=== PATIENT | male | born 1995 | race Caucasian/White ===

== ENCOUNTER 2021-12-09 15:24 | Emergency (ER) | payer OTHER ==
[2021-12-09] MEDS ORDERED: MORPHINE 4 MG/1 ML INJ IV ONE (18:23)
[2021-12-09] MEDS ORDERED: ONDANSETRON 4 MG/2 ML INJ IV ONE ×2 (18:23→22:06)
[2021-12-09] MEDS ORDERED: SODIUM CHLORIDE 0.9% 1000 ML 1,000 ML IV ONE (18:23)
--- NOTE | 2021-12-09 19:17 | Emergency Department Report ---
<JIMENA NATARAJAN - Last Filed: 12/09/21 21:05> ED Abdominal Pain HPI - General Chief Complaint: Abdominal Pain Stated Complaint: ABD PAIN/VOMITING Time Seen by Provider: 12/09/21 18:21 Source: patient Mode of arrival: Ambulatory Limitations: No Limitations - History of Present Illness Initial Comments: Patient is a 26-year-old male presents emergency room complaints of nausea and vomiting and that began at 3 AM this morning. He states he is also been having right lower quadrant abdominal pain. Patient states he has had sick contacts who also had similar symptoms but he reports that their symptoms resolved within 12 hours and he feels like he is getting worse. He denies any fever, hematochezia, melena, hematemesis, urinary symptoms, pain or swelling in the testicles. He denies any past abdominal surgical history. Allergy to droperidol, haloperidol, ketamine Severity scale (0 -10): 10 - Related Data Allergies Allergy/AdvReac Type Severity Reaction Status Date / Time droperidol Allergy Severe Unknown Verified 12/10/21 01:01 haloperidol [From Haldol] Allergy Severe Unknown Verified 12/10/21 01:01 ketamine Allergy Severe Seizure Verified 12/10/21 01:01 ED Review of Systems Comment: All other systems reviewed and negative ED Physical Exam - General Limitations: No Limitations General appearance: alert, in no apparent distress - Head Head exam: Present: atraumatic, normocephalic - Eye Eye exam: Present: normal appearance - ENT ENT exam: Present: mucous membranes moist - Respiratory Respiratory exam: Present: normal lung sounds bilaterally. Absent: respiratory distress, wheezes, rales, rhonchi, stridor, chest wall tenderness, accessory muscle use, decreased breath sounds, prolonged expiratory - Cardiovascular Cardiovascular Exam: Present: normal rhythm, tachycardia, normal heart sounds. Absent: systolic murmur, diastolic murmur, rubs, gallop - GI/Abdominal GI/Abdominal exam: Present: soft, tenderness (RLQ), guarding (voluntary), normal bowel sounds. Absent: distended, rebound, rigid - Neurological Exam Neurological exam: Present: alert, oriented X3 - Psychiatric Psychiatric exam: Present: normal affect, normal mood - Skin Skin exam: Present: warm, dry, intact ED Medical Decision Making - Lab Data Result diagrams: 12/09/21 18:59 12/09/21 18:59 Lab Results 12/09/21 12/09/21 Range/Units 18:59 18:59 WBC 10.3 (4.5-11.0) K/mm3 RBC 4.86 (3.65-5.03) M/mm3 Hgb 14.0 (11.8-15.2) gm/dl Hct 41.9 (35.5-45.6) % MCV 86 (84-94) fl MCH 29 (28-32) pg MCHC 33 (32-34) % RDW 13.3 (13.2-15.2) % Plt Count 255 (140-440) K/mm3 Add Manual Diff Complete Total Counted 100 Seg Neutrophils % [employer] Seg Neuts % (Manual) 91.0 H (40.0-70.0) % Band Neutrophils % 0 % Lymphocytes % (Manual) 5.0 L (13.4-35.0) % Reactive Lymphs % (Man) 0 % Monocytes % (Manual) 4.0 (0.0-7.3) % Eosinophils % (Manual) 0 (0.0-4.3) % Basophils % (Manual) 0 (0.0-1.8) % Metamyelocytes % 0 % Myelocytes % 0 % Promyelocytes % 0 % Blast Cells % 0 % Nucleated RBC % Not Reportable Seg Neutrophils # Man 9.4 H (1.8-7.7) K/mm3 Band Neutrophils # 0.0 K/mm3 Lymphocytes # (Manual) 0.5 L (1.2-5.4) K/mm3 Abs React Lymphs (Man) 0.0 K/mm3 Monocytes # (Manual) 0.4 (0.0-0.8) K/mm3 Eosinophils # (Manual) 0.0 (0.0-0.4) K/mm3 Basophils # (Manual) 0.0 (0.0-0.1) K/mm3 Metamyelocytes # 0.0 K/mm3 Myelocytes # 0.0 K/mm3 Promyelocytes # 0.0 K/mm3 Blast Cells # 0.0 K/mm3 WBC Morphology Not Reportable Hypersegmented Neuts Not Reportable Hyposegmented Neuts Not Reportable Hypogranular Neuts Not Reportable Smudge Cells Not Reportable Toxic Granulation Not Reportable Toxic Vacuolation Not Reportable Dohle Bodies Not Reportable Pelger-Huet Anomaly Not Reportable Montrell Rods Not Reportable Platelet Estimate Not Reportable Clumped Platelets Not Reportable Plt Clumps, EDTA Not Reportable Large Platelets Not Reportable Giant Platelets Not Reportable Platelet Satelliting Not Reportable Plt Morphology Comment Not Reportable RBC Morphology Normal Dimorphic RBCs Not Reportable Polychromasia Not Reportable Hypochromasia Not Reportable Poikilocytosis Not Reportable Anisocytosis Not Reportable Microcytosis Not Reportable Macrocytosis Not Reportable Spherocytes Not Reportable Pappenheimer Bodies Not Reportable Sickle Cells Not Reportable Target Cells Not Reportable Tear Drop Cells Not Reportable Ovalocytes Not Reportable Helmet Cells Not Reportable [place] Bodies Not Reportable [place] Rings Not Reportable [place] Cells Not Reportable Bite Cells Not Reportable Crenated Cell Not Reportable Elliptocytes Not Reportable Acanthocytes (Spur) Not Reportable Rouleaux Not Reportable Hemoglobin C Crystals Not Reportable Schistocytes Not Reportable Malaria parasites Not Reportable Juliano Bodies Not Reportable Hem Pathologist Commnt No Sodium 139 (137-145) mmol/L Potassium 4.2 (3.6-5.0) mmol/L Chloride 97.1 L (98-107) mmol/L Carbon Dioxide 27 (22-30) mmol/L Anion Gap 19 mmol/L BUN 10 (9-20) mg/dL Creatinine 0.8 (0.8-1.3) mg/dL Estimated GFR > 60 ml/min BUN/Creatinine Ratio 13 % Glucose 129 H (75-100) mg/dL Calcium 10.7 H (8.4-10.2) mg/dL Total Bilirubin 0.40 (0.1-1.2) mg/dL AST 18 (5-40) units/L ALT 19 (7-56) units/L Alkaline Phosphatase 58 (35-129) units/L Total Protein 8.1 (6.3-8.2) g/dL Albumin 5.4 H (3.9-5) g/dL Albumin/Globulin Ratio 2.0 % Lipase 31 (13-60) units/L - Medical Decision Making Patient is a 26-year-old male presents emergency room complaints of nausea and vomiting and that began at 3 AM this morning. He states he is also been having right lower quadrant abdominal pain. Patient states he has had sick contacts who also had similar symptoms but he reports that their symptoms resolved within 12 hours and he feels like he is getting worse. He denies any fever, hematochezia, melena, hematemesis, urinary symptoms, pain or swelling in the testicles. He denies any past abdominal surgical history. Allergy to droperidol, haloperidol, ketamine. vitals with tachycardia otherwise stable. Right lower quadrant tenderness on exam, no guarding, no rebound, no rigidity, no peritoneal signs. labs are stable. no leukocytosis. CT abd pelvis with IV contrast is pending pt signed out to Too Manzanares PA-C pending CT abd pelvis and disposition ED Disposition Clinical Impression: Perforation of esophagus, Gastroenteritis, Pneumomediastinum Abdominal pain Qualifiers: Abdominal location: epigastric Qualified Code(s): R10.13 - Epigastric pain Pneumothorax Qualifiers: Pneumothorax type: unspecified pneumothorax Qualified Code(s): J93.9 - Pneumothorax, unspecified Nausea & vomiting Qualifiers: Vomiting type: unspecified Qualified Code(s): R11.2 - Nausea with vomiting, unspecified Disposition: ADMITTED INPATIENT Condition: Critical <HA MACIAS III - Last Filed: 12/10/21 02:47> ED Abdominal Pain HPI - General PUI?: No ED Review of Systems ROS: Stated complaint: ABD PAIN/VOMITING Other details as noted in HPI ED Course Vital Signs 12/09/21 12/10/21 18:12 01:55 Temperature 99 F Pulse Rate 115 H Respiratory 16 20 Rate Blood Pressure 142/103 [Right] O2 Sat by Pulse 100 Oximetry - Reevaluation(s) Reevaluation #1: I assumed care of the patient. The radiologist called with a critical finding on the CT scan of a bibasilar pneumothorax and pneumomediastinum. I reviewed the findings and management of this patient in real-time and I have personally seen and examined this patient and participated in the decision making for this patient with the midlevel. Patient is a 26-year-old male who presents emergency room with complaints of epigastric pain and nausea and vomiting x12 hours. I assumed care of the patient. I examined the patient. Patient has epigastric tenderness. Patient heart sounds are normal, normal S1-S2. Lung sounds are clear to auscultation. Patient is not short of breath. Patient is complaining of nausea and vomiting and abdominal pain. Patient will be given Dilaudid and Zofran. Patient will given IV fluids. 12/09/21 21:25 Reevaluation #2: I discussed all results with patient. I discussed plan of care with patient. Patient agrees with plan of care and admission. Patient to be admitted to the h ospitalist service. 12/10/21 02:15 - Consultations Consultation #1: I discussed the case with pulmonary critical care, Dr. Pereyra. No further recommendations were received. 12/09/21 23:39 Consultation #2: I discussed the case with GI. Recommendations were received. Dr. Sanchez will follow the patient 12/09/21 23:58 Consultation #3: I discussed the case with surgery, Dr. Zamarripa. Dr. Zamarripa wants the patient to be transferred to another facility that has the necessary surgical support. 12/10/21 01:[address] Lau at [facility]. Dr. Lau recommends admission here and he will follow the patient and once a [facility] bed opens up, and we will initiate the transfer. Dr Lau does not recommend any surgical procedures but recommends observation. 12/10/21 01:47 Hospitalist consulted for admission. Hospitalist to admit patient. 12/10/21 01:52 ED Medical Decision Making - Lab Data Result diagrams: 12/09/21 18:59 12/09/21 18:59 - Radiology Data Radiology results: report reviewed CT ABDOMEN AND PELVIS WITH CONTRAST INDICATION / CLINICAL INFORMATION: Right lower quadrant pain, nausea vomiting and diarrhea. TECHNIQUE: Axial CT images were obtained through the abdomen and pelvis after 100 cc Omnipaque [address] scans at this location are performed using CT dose reduction for ALARA by means of automated exposure control. COMPARISON: None available. FINDINGS: LOWER CHEST: Pneumomediastinum is partially visualized surrounding the esophagus with a tiny right basilar pneumothorax. No other acute findings. LIVER: No significant abnormality. GALLBLADDER: No significant abnormality. BILE DUCTS: No significant abnormality. PANCREAS: No significant abnormality. SPLEEN: No significant abnormality. ADRENALS: No significant abnormality. RIGHT KIDNEY/URETER: No significant abnormality. LEFT KIDNEY/URETER: No significant abnormality. STOMACH/SMALL BOWEL: No significant abnormality. COLON: There is mild thickening of the distal half of the descending colon and the proximal third of the sigmoid colon without other significant abnormalities. APPENDIX: No significant abnormality. PERITONEUM: No free fluid. No free air. No fluid collection. LYMPH NODES: No significant adenopathy. VASCULATURE: No significant abnormality. URINARY BLADDER: No significant abnormality. REPRODUCTIVE ORGANS: No significant abnormality. ADDITIONAL FINDINGS: None. BONES: No significant abnormality IMPRESSION: 1. Partially visualized pneumomediastinum with a tiny right basilar pneumothorax. 2. Mild acute descending and sigmoid colitis. 3. No acute findings in the right lower quadrant to explain the patient's pain. - Medical Decision Making I assumed care of the patient from the midlevel and the patient had a pending CT scan of the abdomen. CT scan of the abdomen resulted as a pneumothorax and pneumomediastinum. I did a dedicated CT scan of the chest. The CT scan of the chest showed a tiny pneumothorax and pneumomediastinum. Pneumonia status mostly secondary to a microperforation of the esophagus. I consulted pulmonology and GI. Recommendations were received. I then discussed the case with surgery and surgery recommended that I try to transfer the patient. I discussed the case with [place], [facility] and multiple other hospitals throughout the [facility] all of those hospital systems are all on diversion due to bed shortage. [facility], and he recommends admission here until a bed opens up at [facility]. Uma states they will place the patient on the bed waiting list and give us a call once a bed opens up. I then consulted again the hospitalist service and the hospitalist service will admit the patient. Critical care time documented due to the multiple reassessments, prolonged time at the bedside, interpretation of diagnostics and labs and discussion with multi ple other facilities. - Differential Diagnosis Abdominal pain, nausea, vomiting, gastroenteritis Critical Care Time: Yes Critical care time in (mins) excluding proc time.: 80 Critical care attestation.: If time is entered above; I have spent that time in minutes in the direct care of this critically ill patient, excluding procedure time. Critical Care Time: 80 minutes ED Disposition Is pt being admited?: Yes Does the pt Need Aspirin: No Time of Disposition: 01:52
[2021-12-09 19:21] LABS: Hematocrit 41.9 % (35.5-45.6); Mean Corpuscular HGB Conc 33 % (32-34); Mean Corpuscular Volume 86 fl (84-94); Platelet Count 255 K/mm3 (140-440); Red Blood Count 4.86 M/mm3 (3.65-5.03); Red Cell Distribution Width 13.3 % (13.2-15.2)
[2021-12-09 19:46] LABS: Alanine Aminotransferase 19 units/L (7-56); Albumin 5.4 g/dL (3.9-5); BUN/Creatinine Ratio 13; Blood Urea Nitrogen 10 mg/dL (9-20); Calcium 10.7 mg/dL (8.4-10.2); Hemolysis Index 17
[2021-12-09 20:29] LABS: Basophils % (Manual) 0 % (0.0-1.8); Eosinophils % (Manual) 0 % (0.0-4.3); RBC Morphology Normal; Total Cells Counted 100
--- NOTE | 2021-12-09 21:28 | Cat Scan Report ---
CT ABDOMEN AND PELVIS WITH CONTRAST INDICATION / CLINICAL INFORMATION: Right lower quadrant pain, nausea vomiting and diarrhea. TECHNIQUE: Axial CT images were obtained through the abdomen and pelvis after 100 cc Omnipaque [address] scans at this location are performed using CT dose reduction for ALARA by means of automated exposure control. COMPARISON: None available. FINDINGS: LOWER CHEST: Pneumomediastinum is partially visualized surrounding the esophagus with a tiny right ba silar pneumothorax. No other acute findings. LIVER: No significant abnormality. GALLBLADDER: No significant abnormality. BILE DUCTS: No significant abnormality. PANCREAS: No significant abnormality. SPLEEN: No significant abnormality. ADRENALS: No significant abnormality. RIGHT KIDNEY/URETER: No significant abnormality. LEFT KIDNEY/URETER: No significant abnormality. STOMACH/SMALL BOWEL: No significant abnormality. COLON: There is mild thickening of the distal half of the descending colon and the proximal third of the sigmoid colon without other significant abnormalities. APPENDIX: No significant abnormality. PERITONEUM: No free fluid. No free air. No fluid collection. LYMPH NODES: No significant adenopathy. VASCULATURE: No significant abnormality. URINARY BLADDER: No significant abnormality. REPRODUCTIVE ORGANS: No significant abnormality. ADDITIONAL FINDINGS: None. BONES: No significant abnormality IMPRESSION: 1. Partially visualized pneumomediastinum with a tiny right basilar pneumothorax. 2. Mild acute descending and sigmoid colitis. 3. No acute findings in the right lower quadrant to explain the patient's pain. Signer Name: Todd Marte MD Signed: 12/09/2021 9:23 PM Workstation Name: [id number]
[2021-12-09] MEDS ORDERED: HYDROmorphone 1 MG/1 ML INJ IV ONE (22:06)
--- NOTE | 2021-12-09 22:31 | Cat Scan Report ---
CT CHEST WITHOUT CONTRAST INDICATION / CLINICAL INFORMATION: Pneumothorax. TECHNIQUE: Axial CT images were obtained through the chest without contrast. All CT scans at this location are p erformed using CT dose reduction for ALARA by means of automated exposure control. COMPARISON: CT abdomen and pelvis with contrast performed earlier today. FINDINGS: HEART: No significant abnormality. VASCULATURE: No significant abnormality. LYMPH NODES: No significant adenopathy. TRACHEA AND BRONCHI:No significant abnormality. LUNGS: There is a tiny pneumothorax along the right lower lobe. The lungs are clear. No pleural effus ion. UPPER ABDOMEN: No significant abnormality. BONES: No significant abnormality. ADDITIONAL FINDINGS: Pneumomediastinum is noted with subcutaneous gas seen along the lower neck bilat erally, right greater than left and posteriorly along the lower right chest. IMPRESSION: Pneumomediastinum of uncertain etiology with a tiny right pneumothorax. No other acute findings. Signer Name: Todd Marte MD Signed: 12/09/2021 10:26 PM Workstation Name: [id number]
[2021-12-09] MEDS ORDERED: PIPERACIL/TAZOBACTA 4.5/NS 100 4.5 GM/100 ML VIAL IV ONE (23:55)
[2021-12-09] MEDS ORDERED: PANTOPRAZOLE 40 MG INJ IV ONE (23:59)
[2021-12-10] MEDS ORDERED: MAGNESIUM HYDROXIDE (MOM) ORAL LIQD UDC PO PRN (00:40)
[2021-12-10] MEDS ORDERED: MORPHINE 2 MG/1 ML INJ IV PRN (00:40)
[2021-12-10] MEDS ORDERED: ACETAMINOPHEN 325 MG TAB PO PRN (00:40)
[2021-12-10] MEDS ORDERED: SODIUM CHLORIDE 0.9% 1000 ML 1,000 ML IV SCH (00:45)
--- NOTE | 2021-12-10 00:46 | History and Physical Report ---
History of Present Illness Date of examination: 12/10/21 Date of admission: 12/10/2021 Chief complaint: Abdominal Pain History of present illness: 26-year-old white male presenting to the emergency room today complaining of nausea and vomiting which started early this morning. He has been having associated abdominal pain especially in the right lower abdomen. Patient denies any fever or chills, denies chest pain or shortness of breath, denies any headache or dizziness denies any diaphoresis. Patient indicates that he has had some sick contacts with similar symptoms but the symptoms had resolved within 12 hours. He denies any recent travel. Work-up in the emergency room today, CT of the abdomen and pelvis shows partially visualized pneumomediastinum with tiny right basilar pneumothorax. Mild acute descending and sigmoid colitis. CT of the chest was significant for pneumomediastinum with uncertain etiology with a tiny right pneumothorax. Staffing Consultant, director of photography and general surgery were consulted by the ER physician. Attempts made to transfer patient to another tertiary facility were unsuccessful. Patient to be admitted here and further attempts will be made to transfer patient. Patient meanwhile placed on empiric IV antibiotics. Past History Past Medical History: No medical history Past Surgical History: No surgical history Social history: no significant social history Family history: no significant family history Medications and Allergies Allergies Allergy/AdvReac Type Severity Reaction Status Date / Time droperidol Allergy Severe Unknown Verified 12/10/21 01:01 haloperidol [From Haldol] Allergy Severe Unknown Verified 12/10/21 01:01 ketamine Allergy Severe Seizure Verified 12/10/21 01:01 Review of Systems Constitutional: no fever, no chills Ears, nose, mouth and throat: no nasal congestion, no sore throat Cardiovascular: no chest pain, no palpitations Respiratory: no cough, no shortness of breath Gastrointestinal: abdominal pain, nausea, vomiting, no diarrhea, no constipation Genitourinary Male: no dysuria, no hematuria, no nocturia Musculoskeletal: no neck pain, no low back pain Integumentary: no rash, no pruritis Neurological: no headaches, no confusion Psychiatric: no anxiety, no depression Endocrine: no polyphagia, no polydipsia, no polyuria, no nocturia Exam - Constitutional Vitals: Temp Pulse Resp BP Pulse Ox 99 F 115 H 16 142/103 100 12/09/21 18:12 12/09/21 18:12 12/09/21 18:12 12/09/21 18:12 12/09/21 18:12 General appearance: Present: no acute distress, well-nourished - EENT Eyes: Present: PERRL, EOM intact. Absent: scleral icterus ENT: hearing intact, clear oral mucosa, dentition normal - Neck Neck: Present: supple, normal ROM - Respiratory Respiratory effort: normal Respiratory: bilateral: CTA - Cardiovascular Rhythm: regular Heart Sounds: Present: S1 & S2. Absent: gallop, systolic murmur, diastolic murmur, rub, click - Extremities Extremities: no ischemia, pulses intact, pulses symmetrical, No edema, normal temperature, normal color, Full ROM Peripheral Pulses: within normal limits - Abdominal General gastrointestinal: Present: soft, non-distended, normal bowel sounds. Absent: mass - Integumentary Integumentary: Present: clear, warm, dry, normal turgor. Absent: rash - Musculoskeletal Musculoskeletal: strength equal bilaterally - Psychiatric Psychiatric: appropriate mood/affect, intact judgment & insight, memory intact, cooperative - Neurologic Neurologic: CNII-XII intact, no focal deficits, moves all extremities Results - Labs CBC & Chem 7: 12/09/21 18:59 12/09/21 18:59 Labs: Abnormal lab results 12/09/21 12/09/21 Range/Units 18:59 18:59 Seg Neuts % (Manual) 91.0 H (40.0-70.0) % Lymphocytes % (Manual) 5.0 L (13.4-35.0) % Seg Neutrophils # Man 9.4 H (1.8-7.7) K/mm3 Lymphocytes # (Manual) 0.5 L (1.2-5.4) K/mm3 Chloride 97.1 L (98-107) mmol/L Glucose 129 H (75-100) mg/dL Calcium 10.7 H (8.4-10.2) mg/dL Albumin 5.4 H (3.9-5) g/dL Assessment and Plan - Patient Problems (1) Pneumomediastinum Status: Acute Plan to address problem: Patient to be admitted and observed in the intensive care unit. Await further evaluation and recommendations from weigher [employer]. (2) Gastroenteritis Status: Acute Plan to address problem: Patient placed on IV fluid and empiric IV antibiotics. Await further evaluation by gastroenterology. (3) Nausea & vomiting Status: Acute Qualifiers: Vomiting type: unspecified Qualified Code(s): R11.2 - Nausea with vomiting, unspecified Plan to address problem: Patient placed on antiemetic. Will continue on IV fluid. (4) Pneumothorax Status: Acute Qualifiers: Pneumothorax type: unspecified pneumothorax Qualified Code(s): J93.9 - Pneumothorax, unspecified Plan to address problem: Await further evaluation by we[employer]her [employer]. (5) DVT prophylaxis Status: Acute Plan to address problem: Patient placed on sequential compression device. (6) Full code status Status: Acute Plan to address problem: Patient is full code.
[2021-12-10] MEDS: MORPHINE 4 MG/1 ML INJ IV PRN ×2 (01:55→16:50)
[2021-12-10] MEDS ORDERED: HYDROmorphone 1 MG/1 ML INJ ONE (02:21)
[2021-12-10] MEDS ORDERED: ONDANSETRON 4 MG/2 ML INJ ONE ×2 (02:22→09:31)
[2021-12-10] MEDS ORDERED: PIPERACIL/TAZOBACTA 4.5/NS 100 4.5 GM/100 ML VIAL IV ONE (03:00)
--- NOTE | 2021-12-10 06:07 | Consultation ---
History of Present Illness Consult date: 12/10/21 Requesting physician: JAIDEN ALEJANDRO Reason for consult: other (Pneumomediastinum) History of present illness: 26-year-old white male presenting to the emergency room today complaining of nausea and vomiting which started early this morning. He has been having associated abdominal pain especially in the right lower abdomen. Patient denies any fever or chills, denies chest pain or shortness of breath, denies any headache or dizziness denies any diaphoresis. Patient indicates that he has had some sick contacts with similar symptoms but the symptoms had resolved within 12 hours. He denies any recent travel. Work-up in the emergency room today, CT of the abdomen and pelvis shows partially visualized pneumomediastinum with tiny right basilar pneumothorax. Mild acute descending and sigmoid colitis. CT of the chest was significant for pneumomediastinum with uncertain etiology with a tiny right pneumothorax. A pulmonary consult was placed. Patient seen and examined. Vitals, labs, medications, chart and imaging reviewed. He states his pain remains but much better than when he was initially admitted. He is a life long non smoker, denies any cough. . Past History Past Medical History: No medical history Past Surgical History: No surgical history Social history: no significant social history Family history: no significant family history Medications and Allergies Allergies Allergy/AdvReac Type Severity Reaction Status Date / Time droperidol Allergy Severe Unknown Verified 12/10/21 01:01 haloperidol [From Haldol] Allergy Severe Unknown Verified 12/10/21 01:01 ketamine Allergy Severe Seizure Verified 12/10/21 01:01 Active Meds: Active Medications Acetaminophen (Acetaminophen 325 Mg Tab) 650 mg PO Q6H PRN PRN Reason: Pain MILD(1-3)/Fever >100.5/JERONIMO Sodium Chloride (Nacl 0.9% 1000 Ml) 1,000 mls @ 75 mls/hr IV DIRECT VI Magnesium Hydroxide (Magnesium Hydroxide (Mom) Oral Liqd Udc) 30 ml PO Q4H PRN PRN Reason: Constipation Morphine Sulfate (Morphine 2 Mg/1 Ml Inj) 2 mg IV Q4H PRN PRN Reason: Pain, Moderate (4-6) Morphine Sulfate (Morphine 4 Mg/1 Ml Inj) 4 mg IV Q4H PRN PRN Reason: Pain , Severe (7-10) Last Admin: 12/10/21 01:55 Dose: 4 mg Sodium Chloride (Sodium Chloride 0.9% 10 Ml Flush Syringe) 10 ml IV BID VI Sodium Chloride (Sodium Chloride 0.9% 10 Ml Flush Syringe) 10 ml IV PRN PRN PRN Reason: LINE FLUSH Review of Systems Constitutional: no weight loss, no weight gain, no fever, no chills Cardiovascular: no chest pain, no orthopnea, no lightheadedness, no shortness of breath Respiratory: no cough, no shortness of breath, no dyspnea on exertion, no congestion, no wheezing Gastrointestinal: abdominal pain, nausea, vomiting, no melena, no loss of ap petite, no excessive gas Genitourinary Male: no dysuria, no hematuria, no flank pain, no discharge, no urinary frequency Musculoskeletal: no neck stiffness, no shooting arm pain, no low back pain, no shooting leg pain Physical Examination Vital signs: Vital Signs Temp Pulse Resp BP Pulse Ox 99 F 115 H 16 142/103 100 12/09/21 18:12 12/09/21 18:12 12/09/21 18:12 12/09/21 18:12 12/09/21 18:12 General appearance: appears uncomfortable Eyes: non-icteric ENT: oropharynx moist Neck: supple, no lymphadenopathy, no JVD Effort: normal Ascultation: Bilateral: clear, diminished breath sounds Cardiovascular: regular rate and rhythm, other (S1,S2) Gastrointestinal: normoactive bowel sounds, soft, non-tender Integumentary: normal Extremities: no cyanosis, no edema normal mental status, non-focal exam, pupils equal and round, motor strength normal and Results - Laboratory Findings CBC and BMP: 12/09/21 18:59 12/09/21 18:59 Abnormal lab findings: Abnormal Labs 12/09/21 12/09/21 18:59 18:59 Seg Neuts % (Manual) 91.0 H Lymphocytes % (Manual) 5.0 L Seg Neutrophils # Man 9.4 H Lymphocytes # (Manual) 0.5 L Chloride 97.1 L Glucose 129 H Calcium 10.7 H Albumin 5.4 H - Diagnostic Findings CT scan - chest: image reviewed (Pneumomediastinum with relatively normal lung parenchyma) Assessment and Plan (1) Pneumomediastinum/ Pneumothorax -The patient appears relatively stable and the pneumothorax does not need any intervention at this time except for supplemental oxygen therapy -Serial imaging -Pain management -With the relatively normal lung parenchyma , in spite of the small pneumothorax, the patient should be evaluated for an esophageal tear. -Continue with empiric antibiotics- Zosyn to treat for mediastinitis. -Antiemetics, keep NPO -IV fluids (2) Gastroenteritis (3) Nausea & vomiting All other care per primary Attending and other consultants.
--- NOTE | 2021-12-10 07:57 | XRay Report ---
CHEST 2 VIEWS INDICATION / CLINICAL INFORMATION: follow up pneumomediastinum. COMPARISON: None available. FINDINGS: SUPPORT DEVICES: None. HEART / MEDIASTINUM: Mild gas is seen in the mediastinum and in the neck LUNGS / PLEURA: No significant pulmonary or pleural abnormality. ADDITIONAL FINDINGS: No significant additional findings. IMPRESSION: 1. Pneumomediastinum with emphysematous change within the neck. The tiny pneumothorax seen on CT is n ot well seen Signer Name: Ramone Gallo MD Signed: 12/10/2021 7:53 AM Workstation Name: [id number]
[2021-12-10] MEDS ORDERED: PIPERACIL/TAZOBACTA 4.5/NS 100 4.5 GM/100 ML VIAL IV SCH (11:00)
[2021-12-10] MEDS ORDERED: LORazepam 2 MG/ML VIAL IV PRN (12:22)
--- NOTE | 2021-12-10 12:24 | Gastroenterology Consultation ---
History of Present Illness - Reason for Consult Consult date: 12/10/21 Esophageal tear Requesting physician: JAIDEN ALEJANDRO - History of Present Illness The patient is a 26 yo male with no past GI history, who had abdominal pain in the last 24 hours, associated with N/V/nonbloody diarrhea. The pain was in the LLQ and RLQ but was mild. He denies fevers or prior episodes of pain. After multiple rounds of vomiting, he developed acute epigastric pain radiating into the substernal region. He had no blood in the emesis. He came to the ER and was found to have pneumomediastinum. He had no free air in the abdomen. Since admission, with abx, bowel rest, and pain control, the chest and epigastric pain have resolved, and there is no more vomiting or diarrhea. Past History Past Medical History: No medical history Past Surgical History: No surgical history Social history: no significant social history. denies: smoking, alcohol abuse Family history: no significant family history Medications and Allergies Allergies Allergy/AdvReac Type Severity Reaction Status Date / Time droperidol Allergy Severe Unknown Verified 12/10/21 01:01 haloperidol [From Haldol] Allergy Severe Unknown Verified 12/10/21 01:01 ketamine Allergy Severe Seizure Verified 12/10/21 01:01 Active Meds: Active Medications Acetaminophen (Acetaminophen 325 Mg Tab) 650 mg PO Q6H PRN PRN Reason: Pain MILD(1-3)/Fever >100.5/JERONIMO Sodium Chloride (Nacl 0.9% 1000 Ml) 1,000 mls @ 75 mls/hr IV DIRECT VI Piperacillin Sod/Tazobactam Sod (Zosyn/Ns 4.5gm/100ml) 4.5 gm in 100 mls @ 200 mls/hr IV Q8H VI; Protocol Last Admin: 12/10/21 11:34 Dose: 200 mls/hr Lorazepam (Lorazepam 2 Mg/Ml Vial) 1 mg IV Q4H PRN PRN Reason: Agitation Magnesium Hydroxide (Magnesium Hydroxide (Mom) Oral Liqd Udc) 30 ml PO Q4H PRN PRN Reason: Constipation Morphine Sulfate (Morphine 2 Mg/1 Ml Inj) 2 mg IV Q4H PRN PRN Reason: Pain, Moderate (4-6) Morphine Sulfate (Morphine 4 Mg/1 Ml Inj) 4 mg IV Q4H PRN PRN Reason: Pain , Severe (7-10) Last Admin: 12/10/21 01:55 Dose: 4 mg Pantoprazole Sodium (Pantoprazole 40 Mg Inj) 40 mg IV QDAY VI Sodium Chloride (Sodium Chloride 0.9% 10 Ml Flush Syringe) 10 ml IV BID VI Last Admin: 12/10/21 10:17 Dose: 10 ml Sodium Chloride (Sodium Chloride 0.9% 10 Ml Flush Syringe) 10 ml IV PRN PRN PRN Reason: LINE FLUSH I HAVE REVIEWED/RECONCILED MEDICATIONS Review of Systems - Review of Systems All systems: negative (as noted in the HPI.) Exam - Constitutional Vital Signs: Temp Pulse Resp BP Pulse Ox 99 F 81 13 121/72 100 12/09/21 18:12 12/10/21 06:31 12/10/21 06:31 12/10/21 07:26 12/10/21 06:31 General appearance: mild distress - EENT Eyes: PERRL, EOM intact ENT: hearing intact, clear oral mucosa - Neck Neck: supple, normal ROM, other (crepitus R>L) - Respiratory Respiratory effort: normal Respiratory: bilateral: CTA - Cardiovascular Rhythm: regular Heart Sounds: Present: S1 & S2 Extremities: no ischemia, No edema - Gastrointestinal General gastrointestinal: Present: soft, tender (Minimal bilateral LQ pain), non-distended - Integumentary Integumentary: Present: clear, warm, dry - Neurologic Neurological: alert and oriented x3 - Psychiatric Psychiatric: appropriate mood/affect - Labs CBC & Chem 7: 12/09/21 18:59 12/09/21 18:59 Lab Results: Laboratory Results - last 24 hr 12/09/21 12/09/21 18:59 18:59 WBC 10.3 RBC 4.86 Hgb 14.0 Hct 41.9 MCV 86 MCH 29 MCHC 33 RDW 13.3 Plt Count 255 Add Manual Diff Complete Total Counted 100 Seg Neutrophils % Scanning Coordinator Seg Neuts % (Manual) 91.0 H Band Neutrophils % 0 Lymphocytes % (Manual) 5.0 L Reactive Lymphs % (Man) 0 Monocytes % (Manual) 4.0 Eosinophils % (Manual) 0 Basophils % (Manual) 0 Metamyelocytes % 0 Myelocytes % 0 Promyelocytes % 0 Blast Cells % 0 Nucleated RBC % Not Reportable Seg Neutrophils # Man 9.4 H Band Neutrophils # 0.0 Lymphocytes # (Manual) 0.5 L Abs React Lymphs (Man) 0.0 Monocytes # (Manual) 0.4 Eosinophils # (Manual) 0.0 Basophils # (Manual) 0.0 Metamyelocytes # 0.0 Myelocytes # 0.0 Promyelocytes # 0.0 Blast Cells # 0.0 WBC Morphology Not Reportable Hypersegmented Neuts Not Reportable Hyposegmented Neuts Not Reportable Hypogranular Neuts Not Reportable Smudge Cells Not Reportable Toxic Granulation Not Reportable Toxic Vacuolation Not Reportable Dohle Bodies Not Reportable Pelger-Huet Anomaly Not Reportable Montrell Rods Not Reportable Platelet Estimate Not Reportable Clumped Platelets Not Reportable Plt Clumps, EDTA Not Reportable Large Platelets Not Reportable Giant Platelets Not Reportable Platelet Satelliting Not Reportable Plt Morphology Comment Not Reportable RBC Morphology Normal Dimorphic RBCs Not Reportable Polychromasia Not Reportable Hypochromasia Not Reportable Poikilocytosis Not Reportable Anisocytosis Not Reportable Microcytosis Not Reportable Macrocytosis Not Reportable Spherocytes Not Reportable Pappenheimer Bodies Not Reportable Sickle Cells Not Reportable Target Cells Not Reportable Tear Drop Cells Not Reportable Ovalocytes Not Reportable Helmet Cells Not Reportable Day-[place] Bodies Not Reportable Addy Rings Not Reportable Rhys Cells Not Reportable Bite Cells Not Reportable Crenated Cell Not Reportable Elliptocytes Not Reportable Acanthocytes (Spur) Not Reportable Rouleaux Not Reportable Hemoglobin C Crystals Not Reportable Schistocytes Not Reportable Malaria parasites Not Reportable Juliano Bodies Not Reportable Hem Pathologist Commnt No Sodium 139 Potassium 4.2 Chloride 97.1 L Carbon Dioxide 27 Anion Gap 19 BUN 10 Creatinine 0.8 Estimated GFR > 60 BUN/Creatinine Ratio 13 Glucose 129 H Calcium 10.7 H Total Bilirubin 0.40 AST 18 ALT 19 Alkaline Phosphatase 58 Total Protein 8.1 Albumin 5.4 H Albumin/Globulin Ratio 2.0 Lipase 31 Assessment and Plan - Patient Problems (1) Perforation of esophagus Current Visit: Yes Status: Acute Plan to address problem: - The patient likely has a self-limited tear of the esophagus given the stable vital signs, normal labs, and improved pain in the last 12 hours. - Agree with broad spectrum antibiotics. - Will get gastrograffin swallow to evaluate if tear has sealed; if so, may advance to clear liquids if no further N/V. - If the perforation is still open/active, he will need transfer to facility with esophageal stenting. - Will add ativan IV to zofran; use for anxiety or breakthrough N/V; imperative the patient has no retching. - Continue IV protonix. - Bowel rest for now until gastrograffin swallow completed. (2) Pneumomediastinum Current Visit: Yes Status: Acute (3) Gastroenteritis Current Visit: Yes Status: Acute Plan to address problem: - Likely self-limited/resolving since no further diarrhea, but zosyn for pneumomediastinum should cover most bacterial causes.
[2021-12-10 13:34] LABS: Bacteria,Urine 2+ /HPF (Negative); Bilirubin,Urine NEG (Negative); Blood,Urine NEG (Negative); Color,Urine Yellow (Yellow); Mucus,Urine 3+ /HPF; Urobilinogen,Urine < 2.0 mg/dL (<2.0)
[2021-12-10] MEDS ORDERED: PANTOPRAZOLE 40 MG INJ IV SCH (14:00)
[2021-12-10 16:34] VITALS: BP 148/91
--- NOTE | 2021-12-10 18:01 | Consultation ---
History of Present Illness Consult date: 12/10/21 Reason for consult: abdominal pain - History of present illness History of present illness: Patient is a 26-year-old white male who noted the onset of pain after forcefully vomiting several times. Patient came to the emergency room shortly after the pain started. The pain was in his chest and upper abdomen. White count on admission was 10,000. The CT of the chest and abdomen showed air in the mediastinum. Patient was advised to be transferred to [place] for management of a potential esophageal tear. Bed was initially not available. Patient has been managed with IV antibiotics and IV fluids for the last 24 hours Patient's pain on admission was fairly well controlled. However at the time of my evaluation just before transfer his pain had worsened. He continues to be n.p.o. He will be transferred for definitive management at [facility] Past History Past Medical History: No medical history Past Surgical History: No surgical history Social history: no significant social history. denies: smoking, alcohol abuse Family history: no significant family history Medications and Allergies Allergies Allergy/AdvReac Type Severity Reaction Status Date / Time droperidol Allergy Severe Unknown Verified 12/10/21 01:01 haloperidol [From Haldol] Allergy Severe Unknown Verified 12/10/21 01:01 ketamine Allergy Severe Seizure Verified 12/10/21 01:01 Active Meds: Active Medications Acetaminophen (Acetaminophen 325 Mg Tab) 650 mg PO Q6H PRN PRN Reason: Pain MILD(1-3)/Fever >100.5/JERONIMO Sodium Chloride (Nacl 0.9% 1000 Ml) 1,000 mls @ 75 mls/hr IV DIRECT VI Piperacillin Sod/Tazobactam Sod (Zosyn/Ns 4.5gm/100ml) 4.5 gm in 100 mls @ 200 mls/hr IV Q8H VI; Protocol Last Admin: 12/10/21 11:34 Dose: 200 mls/hr Lorazepam (Lorazepam 2 Mg/Ml Vial) 1 mg IV Q4H PRN PRN Reason: Agitation Magnesium Hydroxide (Magnesium Hydroxide (Mom) Oral Liqd Udc) 30 ml PO Q4H PRN PRN Reason: Constipation Morphine Sulfate (Morphine 2 Mg/1 Ml Inj) 2 mg IV Q4H PRN PRN Reason: Pain, Moderate (4-6) Morphine Sulfate (Morphine 4 Mg/1 Ml Inj) 4 mg IV Q4H PRN PRN Reason: Pain , Severe (7-10) Last Admin: 12/10/21 01:55 Dose: 4 mg Pantoprazole Sodium (Pantoprazole 40 Mg Inj) 40 mg IV QDAY VI Sodium Chloride (Sodium Chloride 0.9% 10 Ml Flush Syringe) 10 ml IV BID VI Last Admin: 12/10/21 10:17 Dose: 10 ml Sodium Chloride (Sodium Chloride 0.9% 10 Ml Flush Syringe) 10 ml IV PRN PRN PRN Reason: LINE FLUSH Exam Vital Signs Temp Pulse Resp BP Pulse Ox 99 F 115 H 16 142/103 100 12/09/21 18:12 12/09/21 18:12 12/09/21 18:12 12/09/21 18:12 12/09/21 18:12 - General physical appearance Positive: well developed - Eyes Positive: PERRL - Neck Positive: no masses, no bruits, trachea midline - Respiratory Positive: normal expansion, clear to auscultation - Cardiovascular Rhythm: regular Heart Sounds: Absent: rub - Extremities Extremities: no ischemia, No edema - Abdomen Abdomen: Present: soft, tender, bowel sounds normal. Absent: distended, guarding, rigid - Neurologic Neurologic: alert and oriented to time, place and person, motor strength and sensation are grossly intact, CN II-XII intact - Psychiatric Psychiatric: appropriate mood/affect Results - Labs 12/09/21 18:59 12/09/21 18:59 Abnormal lab results 12/09/21 12/09/21 12/09/21 Range/Units 18:59 18:59 Unknown Seg Neuts % (Manual) 91.0 H (40.0-70.0) % Lymphocytes % (Manual) 5.0 L (13.4-35.0) % Seg Neutrophils # Man 9.4 H (1.8-7.7) K/mm3 Lymphocytes # (Manual) 0.5 L (1.2-5.4) K/mm3 Chloride 97.1 L (98-107) mmol/L Glucose 129 H (75-100) mg/dL Calcium 10.7 H (8.4-10.2) mg/dL Albumin 5.4 H (3.9-5) g/dL Ur Specific [place] 1.038 H (1.003-1.030) Diabetes panel 12/09/21 Range/Units 18:59 Sodium 139 (137-145) mmol/L Potassium 4.2 (3.6-5.0) mmol/L Chloride 97.1 L (98-107) mmol/L Carbon Dioxide 27 (22-30) mmol/L BUN 10 (9-20) mg/dL Creatinine 0.8 (0.8-1.3) mg/dL Glucose 129 H (75-100) mg/dL Calcium 10.7 H (8.4-10.2) mg/dL AST 18 (5-40) units/L ALT 19 (7-56) units/L Alkaline Phosphatase 58 (35-129) units/L Total Protein 8.1 (6.3-8.2) g/dL Albumin 5.4 H (3.9-5) g/dL Calcium panel 12/09/21 Range/Units 18:59 Calcium 10.7 H (8.4-10.2) mg/dL Albumin 5.4 H (3.9-5) g/dL Pituitary panel 12/09/21 Range/Units 18:59 Sodium 139 (137-145) mmol/L Potassium 4.2 (3.6-5.0) mmol/L Chloride 97.1 L (98-107) mmol/L Carbon Dioxide 27 (22-30) mmol/L BUN 10 (9-20) mg/dL Creatinine 0.8 (0.8-1.3) mg/dL Glucose 129 H (75-100) mg/dL Calcium 10.7 H (8.4-10.2) mg/dL Adrenal panel 12/09/21 Range/Units 18:59 Sodium 139 (137-145) mmol/L Potassium 4.2 (3.6-5.0) mmol/L Chloride 97.1 L (98-107) mmol/L Carbon Dioxide 27 (22-30) mmol/L BUN 10 (9-20) mg/dL Creatinine 0.8 (0.8-1.3) mg/dL Glucose 129 H (75-100) mg/dL Calcium 10.7 H (8.4-10.2) mg/dL Total Bilirubin 0.40 (0.1-1.2) mg/dL AST 18 (5-40) units/L ALT 19 (7-56) units/L Alkaline Phosphatase 58 (35-129) units/L Total Protein 8.1 (6.3-8.2) g/dL Albumin 5.4 H (3.9-5) g/dL Assessment and Plan Patient is a 26-year-old white male who noted the onset of pain after forcefully vomiting several times. Patient came to the emergency room shortly after the pain started. The pain was in his chest and upper abdomen. White count on admission was 10,000. The CT of the chest and abdomen showed air in the mediastinum. Patient was advised to be transferred to [place] for management of a potential esophageal tear. Bed was initially not available. Patient has been managed with IV antibiotics and IV fluids for the last 24 hours Patient's pain on admission was fairly well controlled. However at the time of my evaluation just before transfer his pain had worsened. He continues to be n.p.o. He will be transferred for definitive management at [facility]
== END 2021-12-10 16:50 | disposition admitted as inpatient to this hospital (09) ==
LOC: ED 15:24 → CC1 12-10 00:41 → UNDOADMOB 12-10 00:41 → ED 12-10 16:50
DX: K22.3 Perforation of esophagus (principal); K52.9 Noninfective gastroenteritis and colitis, unspecified; J93.9 Pneumothorax, unspecified; J98.2 Interstitial emphysema; R10.13 Epigastric pain; R11.2 Nausea with vomiting, unspecified; Z88.4 Allergy status to anesthetic agent; Z91.09 Other allergy status, other than to drugs and biological substances
CPT/HCPCS: 36415; 71046; 71250; 74177; 80053; 81001; 83690; 85007; 85025; 96361; 96365; 96366; 96375; 96376; 99291; C9113; J1170; J2060; J2270; J2405; J2543; J7030; Q9967; 96374; 99285; Q0162